=== PATIENT | female | born 1965 | race Caucasian/White ===

== ENCOUNTER 2016-11-14 07:15 | Day surgery (SDC) | payer BC ==
[~2016-11-14 07:15] MED LIST: Lactated Ringers 1,000 ML IV SCH
[2016-11-14] MEDS ORDERED: Propofol 200 MG/20 ML SDV IV ONE (08:30)
[2016-11-14] MEDS ORDERED: Midazolam 1 MG/ML 2 ML SDV IV ONE (08:30)
[2016-11-14] MEDS ORDERED: Lidocaine 2% 100 MG/5 ML Syringe IVPUSH ONE (08:30)
[2016-11-14] MEDS ORDERED: fentaNYL 100 MCG/2 ML SDV IV ONE (08:30)
--- NOTE | 2016-11-14 08:37 | PCM.HPR ---
H & P Addendum review - H & P Addendum Review Date of Original H & P: 11/09/16 Date Reviewed: 11/14/16 Time Reviewed: 08:30 Patient was examined: No Changes Please note any Changes: Ok to proceed with colonoscopy, risks and complications reviewed, consent obtained
--- NOTE | 2016-11-14 08:56 | PCM.OPNOTE ---
- General Post-Op/Procedure Note Date of Surgery/Procedure: 11/14/16 Operative Procedure(s): Colonoscopy Findings: Normal Pre Op Diagnosis: Colon Screening Post-Op Diagnosis: Same Anesthesia Technique: MAC Primary Surgeon: Neto Beltrán Complications: None Condition: Good
[2016-11-14 10:03] VITALS: BP 113/70
--- NOTE | 2016-11-14 12:43 | OR ---
DATE OF OPERATION: 11/14/2016 SURGEON: Neto Beltrán MD PREOPERATIVE DIAGNOSIS: Colon screening. POSTOPERATIVE DIAGNOSIS: Normal colonoscopy. PROCEDURE PERFORMED: Colonoscopy. ANESTHESIA: IV sedation. PROCEDURE IN DETAIL: The patient was brought to the procedure room, where she was placed on her left side and IV sedation administered. Digital rectal exam was performed, which was normal. The colonoscope was inserted and advanced to the level of the cecum with minimal difficulty getting around hepatic flexure, requiring pressure on the abdomen. Cecal position was reached and confirmed by identifying the appendiceal lumen and ileocecal valve. Prep was good and surfaces were well visualized. Upon withdrawing the scope, the ascending, transverse, and descending colon were normal in appearance. Sigmoid colon and rectum were normal. Retroflexion was normal. Air was removed and the scope withdrawn. The patient tolerated the procedure well and returned to recovery in stable condition. Recommend routine colon screening in 10 years. /[id number] [place] CC: MOE BURTON CNP, [facility]
== END 2016-11-14 09:55 | disposition home or self-care (01) ==
LOC: FB.SDS 07:15
PROVIDERS: ATTEND Surgery
PROC: 0DJD8ZZ Inspection of Lower Intestinal Tract, Via Natural or Artificial Opening Endoscopic (ICD-10-PCS; principal; 2016-11-14)
DX: Z12.11 Encounter for screening for malignant neoplasm of colon (principal)
CPT/HCPCS: 45378; J2250; J2704; J3010; J7120